=== PATIENT | male | born 1990 | race Caucasian/White ===

== ENCOUNTER 2020-08-17 09:37 | Emergency (ER) | payer MEDICAID ==
[~2020-08-17] VITALS: Ht 167.6 cm; Wt 115.7 kg
[2020-08-17 09:38] VITALS: Ht 167.6 cm; Wt 115.7 kg
[2020-08-17 12:32] VITALS: BP 134/86
== END 2020-08-17 12:15 | disposition home or self-care (01) ==
LOC: ED 09:37
DX: U07.1 COVID-19 (principal)
CPT/HCPCS: 87804; Q0092; U0003-CS